=== PATIENT | male | born 1935 | race Caucasian/White ===

== ENCOUNTER 2021-11-26 08:06 | Inpatient (IN) | payer MEDICARE ==
[~2021-11-26] VITALS: Ht 167.6 cm; Wt 73.0 kg
[2021-11-26] VITALS (106 sets, daily range): BP systolic 107–184; BP diastolic 52–152
--- NOTE | 2021-11-26 08:06 | NUR ---
PATIENT TO ROOM VIA EMS STRETCHER ON CPAP. SPO2 96%. WHEN TAKEN OFF PATIENT DROPPED TO 85% ON ROOM AIR. HE WAS PLACED ON 6L NC. MALDONADO AT BEDSIDE.
[2021-11-26 08:35] LABS: HEMATOCRIT 41.1 % (39.0-50.0); HEMOGLOBIN 12.8 g/dl (14.0-18.0); IMMATURE GRANULOCYTES 0.2 % (0.0-5.0); MEAN CELL VOLUME 98.1 fL CALC (80.0-100.0); MEAN CORPUSCULAR HGB 30.5 pG CALC (26.0-32.0); MEAN CORPUSCULAR HGB CONC 31.1 g/dL CAL (32.0-36.0); NEUT# 16.74 thou/uL (1.82-7.42); RED BLOOD COUNT 4.19 mill/uL (4.70-6.10); RED CELL DISTRI WIDTH 13.4 % (11.5-15.5)
[2021-11-26] MEDS ORDERED: ASPIRIN LOW DOS81 M1 PO (08:43)
[2021-11-26] MEDS ORDERED: NORVASC5 M1 PO (08:43)
[2021-11-26] MEDS ORDERED: B121000 MC1 PO (08:44)
[2021-11-26] MEDS ORDERED: ATORVASTATIN CA40 MG PO (08:44)
[2021-11-26] MEDS ORDERED: METOPROL TAR25 MG PO (08:45)
[2021-11-26] MEDS ORDERED: ISOSORB MONO30 MG PO (08:45)
[2021-11-26] MEDS ORDERED: CLOPIDOGREL75 MG PO (08:45)
[2021-11-26] MEDS ORDERED: OMEPRAZOLE10 MG PO (08:46)
[2021-11-26 08:50] LABS: ALBUMIN 4.4 g/dL (3.2-5.0); ALKALINE PHOSPHATASE 95 u/l (38-126); ANION GAP 14 (6-22 (CALC)); BILIRUBIN, TOTAL 0.6 mg/dL (0.0-1.4); BUN 15 mg/dL (8-23); BUN/CREATININE RATIO 14 (12-20 (CALC)); CARBON DIOXIDE 28 mmol/l (22-30); CHLORIDE 106 mmol/l (95-108); CREATININE 1.1 mg/dL (0.7-1.3); GFR > 60 ML/MIN (>=60 (CALC)); GFR FOR AFR.AMER. > 60 ML/MIN (>=60 (CALC)); POTASSIUM 3.9 mmol/l (3.5-5.1); SGOT/AST 32 u/l (19-48); SODIUM 143 mmol/l (137-146); TOTAL PROTEIN 7.7 g/dL (6.3-8.2)
--- NOTE | 2021-11-26 09:05 | NUR ---
DAUGHTER AT BEDSIDE. PT RESTING COMFORTABLY. VSS AT THIS TIME
--- NOTE | 2021-11-26 10:09 | NUR ---
STRAIGHT CATH PT FOR URINE AT THIS TIME. TOLERATING BIPAP. NITRO DRIP CHANGED TO 5MCG
[2021-11-26 10:51] LABS: URINE BILIRUBIN - DIPSTICK NEGATIVE (NEGATIVE); URINE BLOOD DIPSTICK LARGE (NEGATIVE); URINE COLOR YELLOW; URINE GLUCOSE - DIPSTICK NEGATIVE (NEGATIVE); URINE KETONE NEGATIVE (NEGATIVE); URINE LEUK ESTERASE NEGATIVE (NEGATIVE); URINE PH 5.5 (4.5-8.0); URINE PROTEIN - DIPSTICK TRACE mg/dL (NEG-TRACE); URINE SPECIFIC GRAVITY 1.025; URINE UROBILINOGEN - DIPSTICK 0.2 E.U./dL (0.2)
[2021-11-26 10:52] LABS: URINE NITRITE - DIPSTICK NEGATIVE (Negative)
[2021-11-26 11:03] LABS: URINE WBC 0-2 WBC/hpf (0-5)
--- NOTE | 2021-11-26 11:30 | NUR ---
SPOKE TO SECOND DAUGHTER REGARDING PT STATUS. PT TO BE ADMITTED TO ICU
--- NOTE | 2021-11-26 12:18 | NUR ---
PT PLACED ON BED FERRELL AND HAD BM. PT CLEANED AND FULL LINEN CHANGE AT THIS TIME
--- NOTE | 2021-11-26 13:00 | NUR ---
Reassessment of patient completed. No distress noted.
--- NOTE | 2021-11-26 14:30 | NUR ---
Reassessment of patient completed. No distress noted.
--- NOTE | 2021-11-26 15:30 | NUR ---
Reassessment of patient completed. No distress noted.
--- NOTE | 2021-11-26 16:15 | NUR ---
Reassessment of patient completed. No distress noted.
--- NOTE | 2021-11-26 17:02 | NUR ---
REPORT CALLED TO ORCHESTRA CONDUCTORANJU MCKNIGHT AT THIS TIME. WILL TRANSPORT PT TO ICU
--- NOTE | 2021-11-26 18:00 | NUR ---
PATIENT CAME ONTO THE FLOOR APPOX 174, PATIENT WAS WET FROM URINE. AIDE HELPED CLEAN HIM UP, APPLIED A SMALL BANDAIDE ON HIS BACK, SMALL OPENING ALONG HIS SPINE. A/O X3 WITH TIMES OF CONFUSION. 3MM PERRL BILAAT EYES. BIPAP ON, VITALS ARE STABLE. NITRO DRIP RUNNING.LUNG SOUNDS SOUND DIMINSHED THROUGHOUT BASES. ACTIVE BOWEL SOUNDS. WAS INFORMED THAT HE POOPED HIMSELF DOWN IN THE ER. DAUGHTER WAS THERE WITH HIM IN THE ER. PATIENT LIVES WITH THE SON. NO EDEMA AT THIS TIME. REDDNESS ON COCCYX AND SOME ON THE UPPER BACK. RED SPOTS RANDOMLY THROUGHOUT THE BODY. 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 NO ARM OR LEG DRIFTS NOTED. SAFETY MEASURES IN PLACE. CALL LIGHTIN REACH. WILL CONTINUE TO MONITOR.
--- NOTE | 2021-11-26 19:40 | NUR ---
awake. oriented to name & place. bipap conts. registered nurse cardiac shows sinus rhythm. ivf infusing well. sips po fluids given. has not voided as of yet. fall precautions & bed alarm conts.
--- NOTE | 2021-11-26 20:30 | NUR ---
spoke to princess(daughter). update given.
--- NOTE | 2021-11-26 21:10 | NUR ---
pt removed bipap-replaced. confused. attempted to reorient. instructed pt princess was aware he was here & would be here tonight. pt verbalized understanding.
--- NOTE | 2021-11-26 22:00 | NUR ---
bipap has been replaced several times. pt remains confused.
--- NOTE | 2021-11-26 23:15 | NUR ---
bipap off & iv out-attached to iv rac. rt notified of need for nc. bed alarm conts.
[2021-11-27] VITALS (19 sets, daily range): BP systolic 106–175; BP diastolic 56–151
--- NOTE | 2021-11-27 00:45 | NUR ---
iv out, site monitor, bp cuff & o2 off-replaced. remains confused. unable to reorient. #22 rac x1 attempt. ivf resumed.
--- NOTE | 2021-11-27 02:00 | NUR ---
awake. remains confused. cardiac nurse shows sinus rhythm.
--- NOTE | 2021-11-27 05:00 | NUR ---
lab here. blood drawn.
--- NOTE | 2021-11-27 05:15 | NUR ---
lab here. blood drawn. rt here. ekg obtained.
[2021-11-27 05:37] LABS: HEMOGLOBIN 12.3 g/dl (14.0-18.0); IMMATURE GRANULOCYTES 0.1 % (0.0-5.0); MEAN CORPUSCULAR HGB 30.8 pG CALC (26.0-32.0); MEAN CORPUSCULAR HGB CONC 32.4 g/dL CAL (32.0-36.0); NEUT# 7.58 thou/uL (1.82-7.42); RED CELL DISTRI WIDTH 13.4 % (11.5-15.5)
--- NOTE | 2021-11-27 05:51 | NUR ---
has taken short naps tonight. monitor technician shows sinus rhythm.
[2021-11-27 06:05] LABS: ALBUMIN 3.9 g/dL (3.2-5.0); ALKALINE PHOSPHATASE 85 u/l (38-126); ANION GAP 13 (6-22 (CALC)); BILIRUBIN, TOTAL 0.8 mg/dL (0.0-1.4); BUN 14 mg/dL (8-23); BUN/CREATININE RATIO 14 (12-20 (CALC)); CARBON DIOXIDE 28 mmol/l (22-30); CHLORIDE 103 mmol/l (95-108); GFR > 60 ML/MIN (>=60 (CALC)); GFR FOR AFR.AMER. > 60 ML/MIN (>=60 (CALC)); POTASSIUM 3.6 mmol/l (3.5-5.1); SGOT/AST 25 u/l (19-48); SODIUM 140 mmol/l (137-146); TOTAL PROTEIN 6.5 g/dL (6.3-8.2)
--- NOTE | 2021-11-27 06:10 | NUR ---
awake. remains confused. looking for "rare coins." attempted to reorient w/o success.
--- NOTE | 2021-11-27 08:00 | NUR ---
PATIENT IS A/O X2, SELF AND PLACE, GOT THE MONTH WRONG. FOLLOWS COMMANDS. VITALS ARE STABLE. 2.5L O2NC SAT 95/96%. 3MM PERRL BILAT EYES. CURRENTLY SITTING UP IN BED WATCHING TV AND EATING BREAKFAST. DIMINISHED LUNG SOUNDS. ACTIVE BOWEL SOUNDS. NO TENDERNESS IN ABDOMEN WHEN PALPATING. NO EDEMA PRESENT AT THIS TIME. DENIES PAIN. EQUAL/STRONG HAND CAREER PLACEMENT SPECIALIST. NO ARM OR LEG DRIFTS. WARM/DRY SKIN. SAFETY MEASURES IN PLACE. CALL LIGHT IN REACH. WILL CONTINUE TO MONITOR PER HOSPITAL'S PROTOCOL.
--- NOTE | 2021-11-27 08:05 | NUR ---
SPOKE TO YAW, DAUGHTER, CODE PROVIDED, UPDATE GIVEN.
--- NOTE | 2021-11-27 08:10 | NUR ---
PATIENT'S DRIP HAS BEEN STOPPED. BP STABLE.
--- NOTE | 2021-11-27 08:31 | NUR ---
BIPAP STANDBY. O2 SAT ON 2L NC 97%.
--- NOTE | 2021-11-27 10:00 | NUR ---
PATIENT GOT UP A COUPLE TIMES, BED ALARM WENT OFF. PATIENT TOOK OFF SOME MEDICAL EQUIPMENT OFF AND PLACED IT IN A CUP OF ICE WATER STATED "HAD TO PUT IT OUT". THE PROBE WAS A RED LIGHT, MAYBE HE THOUGHT IT WAS A SMALL FIRE. HE LAUGHED WHEN I ASKED IF HE THOUGHT IT WAS A FIRE. EDUCATION WAS PROVIDED THAT IT WAS NOT A FIRE, IT WAS A PROBE HE NEEDS TO KEEP ON AND THAT IT WONT HURT HIM.
--- NOTE | 2021-11-27 12:00 | NUR ---
PATIENT IS SITTING UP EATING LUNCH
--- NOTE | 2021-11-27 13:18 | NUR ---
SPOKE TO ANGELY, CODE GIVEN, UPDATE PROVIDED.
--- NOTE | 2021-11-27 13:42 | NUR ---
[facility], CALLED FOR A BED, CALLED FOR REPORT NOW. NURSE IS BUSY, WILL WAIT FOR RETURN CALL.
--- NOTE | 2021-11-27 14:01 | NUR ---
GAVE OFF REPORT TO NURSE AMINTA.
--- NOTE | 2021-11-27 14:14 | NUR ---
PT ARRIVED VIA WC WITH COMMERCIAL MANAGEMENT ACCOUNTANT AT THIS TIME. ORIENTATED PT TO ROOM. IV RAC 20G FLUSHED WITH NO RESISTANCE. O2 AT 3L VIA NC. FALL/SAFETY PRECAUTION IN PLACE. CALL LIGHT WITHIN REACH.
--- NOTE | 2021-11-27 14:42 | NUR ---
LEFT YAW HIS DAUGHTER A VOICEMAIL STATING TO CALL ME BACK FOR THE UPDATE OF HER FATHER. WANTED TO INFORM HER WELL ABOUT HIM MOVING TO BED 280 OVER ON THE [facility] FLOOR.
--- NOTE | 2021-11-27 14:42 | NUR ---
CALLED AND UPDATED ANGELY HIS DAUGHTER ABOUT THE PATIENT BEING TRANSFERED OVER TO [facility].
--- NOTE | 2021-11-27 17:09 | NUR ---
YAW HIS DAUGHTER CALLED, INFORMED HER ON THE TRANSFER.
--- NOTE | 2021-11-27 18:36 | NUR ---
PT RESTING. STATES NO PAIN AT THIS TIME. IV PATENT. FALL/SAFTEY PRECAUTION IN PLACE. CALL LIGHT IS WITHIN REACH.
[2021-11-28 00:07] VITALS: BP 134/64
--- NOTE | 2021-11-28 00:52 | NUR ---
PT IS FIDGETY SHIFT CONTINUES. HAS TRIED TO GET OOB SEVERAL TIMES. IS EASILY REDIRECTED. BED ALARM ACTIVE. VSS
--- NOTE | 2021-11-28 04:04 | NUR ---
RESTED ON AND OFF OVERNIGHT. VSS NO ACUTE EVENTS. Q2HR ROUNDING PER POLICY PERFORMED
[2021-11-28 04:22] VITALS: BP 129/56
[2021-11-28 05:48] LABS: HEMOGLOBIN 12.8 g/dl (14.0-18.0); MEAN CELL VOLUME 94.6 fL CALC (80.0-100.0); MEAN CORPUSCULAR HGB 30.3 pG CALC (26.0-32.0); RED BLOOD COUNT 4.23 mill/uL (4.70-6.10); RED CELL DISTRI WIDTH 13.3 % (11.5-15.5)
[2021-11-28 06:11] LABS: ANION GAP 14 (6-22 (CALC)); BUN 20 mg/dL (8-23); BUN/CREATININE RATIO 17 (12-20 (CALC)); CARBON DIOXIDE 30 mmol/l (22-30); CHLORIDE 99 mmol/l (95-108); CREATININE 1.2 mg/dL (0.7-1.3); GFR 58 ML/MIN (>=60 (CALC)); GFR FOR AFR.AMER. > 60 ML/MIN (>=60 (CALC)); MAGNESIUM 1.9 mg/dL (1.6-2.3); POTASSIUM 3.4 mmol/l (3.5-5.1); SODIUM 139 mmol/l (137-146)
--- NOTE | 2021-11-28 08:00 | NUR ---
ASSESSMENT AND VITALS ALLOWED PT ABLE TO TELL ME NAME AND . SPEECH IS GARBLED. TELE MONTIOR IN PLACE, CONTINOUS MONTIORING PER ED. IV 22 RAC SL FLUSHED WITH NO RESISTANCE. FALL/SAFTEY PRECAUTION IN PLACE. CALL LIGHT IS WITHIN REACH.
[2021-11-28 09:03] VITALS: BP 145/64
[2021-11-28 09:26] VITALS: BP 156/60
--- NOTE | 2021-11-28 13:03 | NUR ---
PT RESTING IN SEMI STEELE POSTION. IV PATENT. TELE MONITOR IN PLACE. CALL LIGHT WITHIN REACH. FALL/SAFTEY PRECAUTIONS IN PLACE.
[2021-11-28 13:28] VITALS: BP 113/59
--- NOTE | 2021-11-28 17:30 | NUR ---
PT EATING DINNER NO DISTRESS NOTED. TELE MONITOR IN PLACE. FALL/SAFTEY PRECAUTION IN PLACE. CALL LIGHT IS WITHIN REACH.
[2021-11-28 17:57] VITALS: BP 164/61
--- NOTE | 2021-11-28 20:47 | NUR ---
resting in bed. vss sat 93% on room air at rest. alert oriented to person only tonight. respirations unlabored but diminished. bs active. no ble edema noted. piv wdl. bed low and locked call joseph in reach side rails up. bed alarm active
--- NOTE | 2021-11-28 23:44 | NUR ---
RESTING IN BED EYES CLOSED VSS. BED ALARM ACTIVE
[2021-11-29] VITALS: BP 137/66
[2021-11-29 02:59] VITALS: BP 143/70
--- NOTE | 2021-11-29 04:31 | NUR ---
VSS NO EVENTS OVERNIGHT PT WAS RESTLESS DID NOT SLEEP MUCH
[2021-11-29 05:07] LABS: HEMATOCRIT 41.4 % (39.0-50.0); HEMOGLOBIN 13.5 g/dl (14.0-18.0); MEAN CELL VOLUME 92.8 fL CALC (80.0-100.0); MEAN CORPUSCULAR HGB 30.3 pG CALC (26.0-32.0); MEAN CORPUSCULAR HGB CONC 32.6 g/dL CAL (32.0-36.0); RED BLOOD COUNT 4.46 mill/uL (4.70-6.10); RED CELL DISTRI WIDTH 13.1 % (11.5-15.5)
[2021-11-29 05:41] LABS: CREATININE 1.6 mg/dL (0.7-1.3); POTASSIUM 3.6 mmol/l (3.5-5.1)
--- NOTE | 2021-11-29 07:00 | NUR ---
RECEIVE REPORT FROM MEJIA RENE.
[2021-11-29 08:00] VITALS: BP 143/62
--- NOTE | 2021-11-29 09:24 | NUR ---
PATIENT ALERT AND CONFUSED X2. NOT RESPIRATORY DISTRESS AT THIS TIME. PATIENT IS EDUCATES ABOUT MEDICATIONS AND NURSING PLAN TODAY. PATIENT NOT DEMOSTRATED UNDERSTAND. HOUERLY ROUNDS PLANIFY FOR FALL PRECAUTIONS AND PATIENT SATISFACTIONS.
[2021-11-29 09:38] VITALS: BP 155/76
--- NOTE | 2021-11-29 14:29 | NUR ---
Treatment held this am per nursing request, now pt sleeping, not responding to questions (due to medication early today). Pt unable to participate in treatment at this time.
[2021-11-29 14:38] VITALS: BP 130/62
[2021-11-29 17:16] VITALS: BP 161/75
== END 2021-11-29 18:35 | disposition home or self-care (01) | DRG 292 ==
LOC: ED 08:06 → ED-I 08:50 → ED 08:50 → ED-I 10:29 → ED 10:57 → ED-I 10:58 → ICU 10:58 → MS2 10:58 → ICU 16:13 → MS2 11-27 14:14
PROVIDERS: Family Medicine; Hospitalist; ADMIT Internal Medicine; ATTEND Internal Medicine
PROC: 5A09357 Assistance with Respiratory Ventilation, Less than 24 Consecutive Hours, Continuous Positive Airway Pressure (ICD-10-PCS; principal; 2021-11-26)
DX: I11.0 Hypertensive heart disease with heart failure (principal); I16.1 Hypertensive emergency; N17.9 Acute kidney failure, unspecified; I50.9 Heart failure, unspecified; I25.10 Atherosclerotic heart disease of native coronary artery without angina pectoris; E78.5 Hyperlipidemia, unspecified; K21.9 Gastro-esophageal reflux disease without esophagitis; Z95.1 Presence of aortocoronary bypass graft; Z20.822 Contact with and (suspected) exposure to COVID-19
CPT/HCPCS: J1650; Q9967